=== PATIENT | male | born 2000 | race Two or more races ===

== ENCOUNTER 2019-02-13 04:54 | Emergency (ER) | payer OTHER ==
[~2019-02-13] VITALS: Ht 180.3 cm; Wt 65.8 kg
[2019-02-13] MEDS ORDERED: LIDOCAINE 2% VISCOUS 15 ML SOLUTION. MM ONE (05:30)
--- NOTE | 2019-02-13 05:38 | PHYS DOC ---
Adult General Chief Complaint Chief Complaint: FOREIGNBODY EAR HPI HPI Patient is a 18 year old healthy male, w/ no medical or surgical history, who presents with a sensation that a foreign body is in his ear. Pt is visibly anxious and is scared there is a "bug or a rat" in his ear. Pt reports onset around 10AM yesterday (02/12/19) that he felt like something was in his ear. He reports that swallowing caused him to feel "like air moving" through his nasal sinus and right ear. Pt states he was sick on tuesday w/ fever but did not go to the hospital and it improved, "going away" on tuesday. He states that he would pinch his nose and blow it to try and "get it out," and he kept doing this until he felt a pop. He is very scared and anxious that something is in his ear and states his ear isn't "Feeling right." He denies ear pain. He denies CP, PADGETT, SOB, n/v, diarrhea, constipation. He admits a recent history of fever but notes he never recorded a temperature. He denies taking any medications, having any past surgeries, or any medical conditions. (JOSUE BEARD MD) Review of Systems Review of Systems Constitutional:Admits to subjective fever this past Tuesday (02/09/19), he did not take his temperature. Reports being sick this past but improved on its own. Eyes: Denies change in visual acuity, redness, or eye pain HENT:states that he "feels air traveling from my nose to my right ear when I swallow." Respiratory: Admits cough and shortness of breath Cardiovascular: No additional information not addressed in HPI. GI: Denies abdominal pain, nausea, vomiting, bloody stools or diarrhea : Denies dysuria or hematuria Musculoskeletal: Denies back pain or joint pain Integument: Denies rash or skin lesions Neurologic: Denies headache, focal weakness or sensory changes Endocrine: Denies polyuria or polydipsia All other systems were reviewed and found to be within normal limits, except as documented in this note. (JOSUE BEARD MD) Current Medications Current Medications Current Medications Medications (Trade) Dose Ordered Sig/Janice Start Time Stop Time Status Last Admin Dose Admin Ketorolac Tromethamine (Toradol 15mg Vial) 15 mg 1X ONCE 02/13/19 06:00 02/13/19 06:01 DC Lidocaine HCl (Viscous Lidocaine) 15 ml 1X ONCE 02/13/19 05:30 02/13/19 05:31 DC Lorazepam (Ativan) 1 mg 1X ONCE 02/13/19 06:00 02/13/19 06:01 DC 02/13/19 06:00 1 MG Sodium Chloride 1,000 ml @ 1,000 mls/hr 1X ONCE 02/13/19 06:00 02/13/19 06:59 DC 02/13/19 05:24 1,000 MLS/HR (YARELIS MACDONALD DO) Allergies Allergies Allergies Coded Allergies Type Severity Reaction Last Updated Verified No Known Drug Allergies 02/13/19 No (YARELIS MACDONALD DO) Physical Exam Physical Exam Constitutional: Pt in acute distress, visibily anxious, but non-toxic appearance. HENT: Normocephalic, atraumatic, bilateral external ears normal, oropharynx moist, no oral exudates, nose turbinates inflamed and erythematous b/l. L external ear normal and TM w/ cone of light noted, difficult exam bubbles seen no definite tm perf but bubbles and discharge obscure view.. Right ear has dried serosangious fluid around the external ear canal and in the ear canal. TM is not visualized, with this fluid and bubbles covering where his TM should be. Eyes: PERRLA, EOMI, conjunctiva normal, no discharge. Neck: Normal range of motion, no tenderness, supple, no stridor. Cardiovascular:Heart rate tachycardic. Regular rhythm, no murmur Lungs & Thorax: Bilateral breath sounds clear to auscultation Abdomen: Bowel sounds normal, soft, no tenderness, no masses, no pulsatile masses. Skin: Warm, dry, no erythema, no rash. Back: No tenderness, no CVA tenderness. Extremities: No tenderness, no cyanosis, no clubbing, ROM intact, no edema. Neurologic: Alert and oriented X 3, normal motor function, normal sensory function, no focal deficits noted. psychl; pt is quite anxious (JOSUE BEARD MD) Current Patient Data Vital Signs Vital Signs Date Time Temp Pulse Resp B/P (MAP) Pulse Ox O2 Delivery O2 Flow Rate FiO2 02/13/19 06:30 118 22 122/70 (87) 98 Room Air 02/13/19 05:06 98.4 98.4 (MACDONALDYARELIS DO) Lab Values Laboratory Tests Test 02/13/19 05:22 02/13/19 05:50 02/13/19 06:30 White Blood Count 11.1 x10^3/uL (4.0-11.0) H Red Blood Count 4.87 x10^6/uL (4.30-5.70) Hemoglobin 14.8 g/dL (13.0-17.5) Hematocrit 43.1 % (39.0-53.0) Mean Corpuscular Volume 89 fL (79-100) Mean Corpuscular Hemoglobin 30 pg (25-35) Mean Corpuscular Hemoglobin Concent 34 g/dL (31-37) Red Cell Distribution Width 13.0 % (11.5-14.5) Platelet Count 194 x10^3/uL (140-400) Neutrophils (%) (Auto) 77 % (31-73) H Lymphocytes (%) (Auto) 15 % (24-48) L Monocytes (%) (Auto) 8 % (0-9) Eosinophils (%) (Auto) 0 % (0-3) Basophils (%) (Auto) 0 % (0-3) Neutrophils # (Auto) 8.5 x10^3uL (1.8-7.7) H Lymphocytes # (Auto) 1.7 x10^3/uL (1.0-4.8) Monocytes # (Auto) 0.9 x10^3/uL (0.0-1.1) Eosinophils # (Auto) 0.0 x10^3/uL (0.0-0.7) Basophils # (Auto) 0.0 x10^3/uL (0.0-0.2) Sodium Level 141 mmol/L (136-145) Potassium Level 3.4 mmol/L (3.5-5.1) L Chloride Level 101 mmol/L (98-107) Carbon Dioxide Level 25 mmol/L (21-32) Anion Gap 15 (6-14) H Blood Urea Nitrogen 13 mg/dL (8-26) Creatinine 0.9 mg/dL (0.7-1.3) Estimated GFR (Cockcroft-Gault) 107.6 BUN/Creatinine Ratio 14 (6-20) Glucose Level 113 mg/dL (70-99) H Calcium Level 9.2 mg/dL (8.5-10.1) Total Bilirubin 0.5 mg/dL (0.2-1.0) Aspartate Amino Transferase (AST) 22 U/L (15-37) Alanine Aminotransferase (ALT) 35 U/L (16-63) Alkaline Phosphatase 77 U/L (46-116) Total Protein 8.4 g/dL (6.4-8.2) H Albumin 4.1 g/dL (3.4-5.0) Albumin/Globulin Ratio 1.0 (1.0-1.7) Influenza Type A Antigen Negative (NEGATIVE) Influenza Type B Antigen Negative (NEGATIVE) Urine Opiates Screen Neg (NEG) Urine Methadone Screen Neg (NEG) Urine Barbiturates Neg (NEG) Urine Phencyclidine Screen Neg (NEG) Urine Amphetamine/Methamphetamine Neg (NEG) Urine Benzodiazepines Screen Neg (NEG) Urine Cocaine Screen Pos (NEG) Urine Cannabinoids Screen Pos (NEG) Urine Ethyl Alcohol Neg (NEG) Laboratory Tests 02/13/19 05:22 Laboratory Tests 02/13/19 05:22 (YARELIS MACDONALD DO) Lab Values Laboratory Tests Test 02/13/19 05:22 02/13/19 05:50 02/13/19 06:30 White Blood Count 11.1 x10^3/uL (4.0-11.0) H Red Blood Count 4.87 x10^6/uL (4.30-5.70) Hemoglobin 14.8 g/dL (13.0-17.5) Hematocrit 43.1 % (39.0-53.0) Mean Corpuscular Volume 89 fL (79-100) Mean Corpuscular Hemoglobin 30 pg (25-35) Mean Corpuscular Hemoglobin Concent 34 g/dL (31-37) Red Cell Distribution Width 13.0 % (11.5-14.5) Platelet Count 194 x10^3/uL (140-400) Neutrophils (%) (Auto) 77 % (31-73) H Lymphocytes (%) (Auto) 15 % (24-48) L Monocytes (%) (Auto) 8 % (0-9) Eosinophils (%) (Auto) 0 % (0-3) Basophils (%) (Auto) 0 % (0-3) Neutrophils # (Auto) 8.5 x10^3uL (1.8-7.7) H Lymphocytes # (Auto) 1.7 x10^3/uL (1.0-4.8) Monocytes # (Auto) 0.9 x10^3/uL (0.0-1.1) Eosinophils # (Auto) 0.0 x10^3/uL (0.0-0.7) Basophils # (Auto) 0.0 x10^3/uL (0.0-0.2) Sodium Level 141 mmol/L (136-145) Potassium Level 3.4 mmol/L (3.5-5.1) L Chloride Level 101 mmol/L (98-107) Carbon Dioxide Level 25 mmol/L (21-32) Anion Gap 15 (6-14) H Blood Urea Nitrogen 13 mg/dL (8-26) Creatinine 0.9 mg/dL (0.7-1.3) Estimated GFR (Cockcroft-Gault) 107.6 BUN/Creatinine Ratio 14 (6-20) Glucose Level 113 mg/dL (70-99) H Calcium Level 9.2 mg/dL (8.5-10.1) Total Bilirubin 0.5 mg/dL (0.2-1.0) Aspartate Amino Transferase (AST) 22 U/L (15-37) Alanine Aminotransferase (ALT) 35 U/L (16-63) Alkaline Phosphatase 77 U/L (46-116) Total Protein 8.4 g/dL (6.4-8.2) H Albumin 4.1 g/dL (3.4-5.0) Albumin/Globulin Ratio 1.0 (1.0-1.7) Influenza Type A Antigen Negative (NEGATIVE) Influenza Type B Antigen Negative (NEGATIVE) Group A Streptococcus Rapid Negative (NEGATIVE) Urine Opiates Screen Neg (NEG) Urine Methadone Screen Neg (NEG) Urine Barbiturates Neg (NEG) Urine Phencyclidine Screen Neg (NEG) Urine Amphetamine/Methamphetamine Neg (NEG) Urine Benzodiazepines Screen Neg (NEG) Urine Cocaine Screen Pos (NEG) Urine Cannabinoids Screen Pos (NEG) Urine Ethyl Alcohol Neg (NEG) Laboratory Tests 02/13/19 05:22 Laboratory Tests 02/13/19 05:22 (JOSUE BEARD MD) EKG EKG Sinus tachycardia 140 BPM RBB Pattern (JOSUE BEARD MD) Radiology/Procedures Radiology/Procedures [] (JOSUE BEARD MD) Course & Med Decision Making Course & Med Decision Making Pt is a 18 yo M w/ no medical history presents w/ Right ear drainage. He is visibly anxious and scared that "a rat" is in his ear. His EKG showed RBBB and sinus tach at 140 bpm. On inspection of his R ear, dried fluid is seen on the external ear canal and w/in it. TM was not visualized on inspection, ear canal was filled w/ fluid and bubbles. He states he was recently sick and reports cough this past weekend. Ddx Perforated right ear drum with anxiety from pain and possible drug use admits to marijuana Workup CXR IV Fluids CBC, CMP flu swab. rapid strep s/o to macdonald pending results. likely will need drops for ruptured tm. (JOSUE BEARD MD) Course & Med Decision Making Patient felt much better, his heart rate improved to 100 bpm, lab works failed to show any acute problem, will discharge him home. (YARELIS MACDONALD DO) Dragon Disclaimer Dragon Disclaimer This electronic medical record was generated, in whole or in part, using a voice recognition dictation system. (JOSUE BEARD MD) Departure Departure Impression: Primary Impression: Tympanic membrane perforation Additional Impression: Substance abuse Disposition: 01 HOME, SELF-CARE Condition: IMPROVED Scripts Ciprofloxacin Hcl/Dexameth (CIPRODEX OTIC SUSPENSION) 7.5 Ml Drops.susp 4 DROP RIGHT EAR BID for 7 Days, #7.5 ML Prov: JOSUE BEARD MD 02/13/19 Problem Qualifiers JOSUE BEARD MD Feb 13, 2019 05:38 YARELIS MACDONALD DO Feb 13, 2019 07:16
[2019-02-13] MEDS ORDERED: CIPR7.5D RIGHT EAR (05:55)
[2019-02-13] MEDS ORDERED: KETOROLAC 15 MG/ML VIAL. IV ONE (06:00)
[2019-02-13] MEDS ORDERED: IV NORMAL SALINE 1000ML BAG 1,000 ML IV ONE (06:00)
[2019-02-13 06:09] LABS: BASO % 0 % (0-3); EOS % 0 % (0-3); HEMATOCRIT 43.1 % (39.0-53.0); HEMOGLOBIN 14.8 g/dL (13.0-17.5); LYMPH # 1.7 x10^3/uL (1.0-4.8); LYMPH % 15 % (24-48); MEAN CORPUSCULAR HEMOGLOBIN 30 pg (25-35); MEAN CORPUSCULAR HGB CONC 34 g/dL (31-37); MEAN CORPUSCULAR VOLUME 89 fL (79-100); MONO # 0.9 x10^3/uL (0.0-1.1); MONO % 8 % (0-9); NEUT # 8.5 x10^3uL (1.8-7.7); NEUT % 77 % (31-73); PLATELET COUNT 194 x10^3/uL (140-400); RED BLOOD COUNT 4.87 x10^6/uL (4.30-5.70); WHITE BLOOD COUNT 11.1 x10^3/uL (4.0-11.0)
[2019-02-13 06:18] LABS: INFLUENZA A PATIENT NEGATIVE (NEGATIVE); INFLUENZA B PATIENT NEGATIVE (NEGATIVE)
[2019-02-13 06:57] LABS: CALCIUM 9.2 mg/dL (8.5-10.1); CREATININE 0.9 mg/dL (0.7-1.3); GFR 107.6; POTASSIUM 3.4 mmol/L (3.5-5.1)
[2019-02-13 07:04] LABS: ALBUMIN 4.1 g/dL (3.4-5.0); TOTAL BILIRUBIN 0.5 mg/dL (0.2-1.0); TOTAL PROTEIN 8.4 g/dL (6.4-8.2)
[2019-02-13 07:06] VITALS: BP 127/70
[2019-02-13 07:09] LABS: BARBITURATES NEG (NEG); BENZODIAZEPINES NEG (NEG); CANNABINOIDS POS (NEG); COCAINE POS (NEG); METHADONE NEG (NEG); OPIATES NEG (NEG); PHENCYCLIDINE NEG (NEG)
[2019-02-13 07:10] LABS: AMPHETAMINE/METHAMPHETAMINE NEG (NEG)
--- NOTE | 2019-02-13 08:06 | RAD ---
PROCEDURE: PORTABLE CHEST 1V CLINICAL INDICATION: fever COMPARISON: None FINDINGS: No pneumothorax identified. Cardiac and mediastinal contours unremarkable. No pulmonary consolidation or acute airspace disease. No acute osseous abnormalities identified. IMPRESSION: No pulmonary consolidation or acute airspace disease. Electronically signed by: Junior Newman DO (02/13/2019 8:02 AM) [facility]
--- NOTE | 2019-02-13 12:30 | EKG ---
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
== END 2019-02-13 07:25 | disposition home or self-care (01) ==
LOC: ER 04:54
DX: H72.91 Unspecified perforation of tympanic membrane, right ear (principal); F19.10 Other psychoactive substance abuse, uncomplicated; F41.9 Anxiety disorder, unspecified; I45.10 Unspecified right bundle-branch block
CPT/HCPCS: 36415; 71045; 80053; 80307; 85025; 87070; 87804; 87880; 93005; 96374; 99284; J2060; J7030

== ENCOUNTER 2019-09-12 18:50 | Emergency (ER) | payer OTHER ==
[~2019-09-12] VITALS: Ht 177.8 cm; Wt 61.2 kg
[~2019-09-12 18:50] MED LIST: CIPR7.5D RIGHT EAR
[2019-09-12 19:09] VITALS: BP 139/77
--- NOTE | 2019-09-12 19:17 | PHYS DOC ---
Past Medical History Past Medical History: No Pertinent History Past Surgical History: No Surgical History Alcohol Use: None Drug Use: Marijuana Adult General Chief Complaint Chief Complaint: MECHANICAL FALL [facility] HPI 18-year-old male presents to the emergency Department complaints of left ankle, left wrist, left shoulder pain. Patient states he fell from a fence apartment 2 days ago. He's had worsening pain and therefore presented to the ER for further evaluation. Patient has no past medical history, takes no medications on a daily basis. He has no primary care physician. Movements make his pain worse. He states he has tingling appreciated to his index and thumb. He is able to move all of his fingers as well as his hand. Patient is limited range of motion secondary to pain on his left shoulder. All other ROS negative unless documented in HPI Review of Systems Review of Systems See Above Current Medications Current Medications Current Medications Medications (Trade) Dose Ordered Sig/Janice Start Time Stop Time Status Last Admin Dose Admin Diphtheria/ Tetanus/Acell Pertussis (Boostrix) 0.5 ml ONCE ONCE 09/12/19 20:00 09/12/19 20:01 DC Allergies Allergies Allergies Coded Allergies Type Severity Reaction Last Updated Verified No Known Drug Allergies 02/13/19 No Physical Exam Physical Exam See Above Constitutional: Well developed, well nourished, no acute distress, non-toxic appearance. [] HENT: Normocephalic, atraumatic, bilateral external ears normal, oropharynx m oist, no oral exudates, nose normal. [] Eyes: PERRLA, EOMI, conjunctiva normal, no discharge. [] Neck: Normal range of motion, no tenderness, supple, no stridor. [] Cardiovascular:Heart rate regular rhythm, no murmur [] Lungs & Thorax: Bilateral breath sounds clear to auscultation [] Abdomen: Bowel sounds normal, soft, no tenderness, no masses, no pulsatile masses. [] Skin: laceration appreciated to right index finger, hemostatis Back: No tenderness, no CVA tenderness. [] Extremities: ROM limited to ankle and shoulder 2/2 pain, left wrist with tenderness on exam however no acute bruising [] Neurologic: Alert and oriented X 3, no focal deficits noted. [] Psychologic: Affect normal, judgement normal, mood normal. [] Current Patient Data Vital Signs Vital Signs Date Time Temp Pulse Resp B/P (MAP) Pulse Ox O2 Delivery O2 Flow Rate FiO2 09/12/19 19:09 98.3 98 18 139/77 (97) 99 Room Air 98.3 EKG EKG [] Radiology/Procedures Radiology/Procedures [facility] [address] [place] [address] IMAGING REPORT Signed PATIENT: JG ALEXANDERACCOUNT: [id number] : 2000 LOCATION: ER AGE: 18 SEX: M EXAM STATUS: REG ER ORD. PHYSICIAN: CATHERINE LOZADA MD REASON: fall, pain to anterior shoulder/clavicle PROCEDURE: WRIST 3V LEFT Left wrist x-rays 3 views HISTORY: Fall, left wrist pain. FINDINGS: No definitive fracture. No dislocation. There is mild cortical irregularity at the radial styloid and volar radial metaphyseal cortex on the oblique and lateral x-rays without a distinct lucent fracture cleft, if the patient has point tenderness at this region an acute fracture would not be excluded. IMPRESSION: Mild cortical regularity of the radius as described above. Left shoulder frontal and scapular x-rays 3 views HISTORY: Shoulder pain after a fall. FINDINGS: No fracture, dislocation or arthritic change. The soft tissues are unremarkable. IMPRESSION: Normal exam. Left ankle x-rays 3 views HISTORY: Fall, left ankle pain. FINDINGS: Bone island of the talus. No fracture or dislocation of the ankle mortise. On the lateral film there are linear irregular calcifications overlying the dorsal cortex of the anterior talus and navicular without a discrete donor site this could be the sequela of an old injury with periosteal calcification, this is not the typical morphology of an acute periosteal cortical avulsive injury which is considered much less likely. IMPRESSION: No acute osseous injury evident. See discussion above. Electronically signed by: Jose Glez MD (09/12/2019 8:05 PM) [facility] [] [address] [place] [address] IMAGING REPORT Signed PATIENT: JG ALEXANDERACCOUNT: [id number] : 2000 LOCATION: ER AGE: 18 SEX: M EXAM STATUS: REG ER ORD. PHYSICIAN: CATHERINE LOZADA MD REASON: fall, pain to anterior shoulder/clavicle PROCEDURE: SHOULDER 2+V LEFT Left wrist x-rays 3 views HISTORY: Fall, left wrist pain. FINDINGS: No definitive fracture. No dislocation. There is mild cortical irregularity at the radial styloid and volar radial metaphyseal cortex on the oblique and lateral x-rays without a distinct lucent fracture cleft, if the patient has point tenderness at this region an acute fracture would not be excluded. IMPRESSION: Mild cortical regularity of the radius as described above. Left shoulder frontal and scapular x-rays 3 views HISTORY: Shoulder pain after a fall. FINDINGS: No fracture, dislocation or arthritic change. The soft tissues are unremarkable. IMPRESSION: Normal exam. Left ankle x-rays 3 views HISTORY: Fall, left ankle pain. FINDINGS: Bone island of the talus. No fracture or dislocation of the ankle mortise. On the lateral film there are linear irregular calcifications overlying the dorsal cortex of the anterior talus and navicular without a discrete donor site this could be the sequela of an old injury with periosteal calcification, this is not the typical morphology of an acute periosteal cortical avulsive injury which is considered much less likely. IMPRESSION: No acute osseous injury evident. See discussion above. Electronically signed by: Jose Glez MD (09/12/2019 8:05 PM) [facility] DICTATED and SIGNED BY: JOSE GLEZ MD DATE: 09/12/192004 [facility] [address] [place] [address] IMAGING REPORT Signed PATIENT: JG ALEXANDERACCOUNT: [id number] : 2000 LOCATION: ER AGE: 18 SEX: M EXAM STATUS: REG ER ORD. PHYSICIAN: CATHERINE LOZADA MD REASON: fall, pain to anterior shoulder/clavicle PROCEDURE: ANKLE LEFT 3V Left wrist x-rays 3 views HISTORY: Fall, left wrist pain. FINDINGS: No definitive fracture. No dislocation. There is mild cortical irregularity at the radial styloid and volar radial metaphyseal cortex on the oblique and lateral x-rays without a distinct lucent fracture cleft, if the patient has point tenderness at this region an acute fracture would not be excluded. IMPRESSION: Mild cortical regularity of the radius as described above. Left shoulder frontal and scapular x-rays 3 views HISTORY: Shoulder pain after a fall. FINDINGS: No fracture, dislocation or arthritic change. The soft tissues are unremarkable. IMPRESSION: Normal exam. Left ankle x-rays 3 views HISTORY: Fall, left ankle pain. FINDINGS: Bone island of the talus. No fracture or dislocation of the ankle mortise. On the lateral film there are linear irregular calcifications overlying the dorsal cortex of the anterior talus and navicular without a discrete donor site this could be the sequela of an old injury with periosteal calcification, this is not the typical morphology of an acute periosteal cortical avulsive injury which is considered much less likely. IMPRESSION: No acute osseous injury evident. See discussion above. Electronically signed by: Jose Glez MD (09/12/2019 8:05 PM) [facility] DICTATED and SIGNED BY: JOSE GLEZ MD DATE: 09/12/192004 Course & Med Decision Making Course & Med Decision Making Pertinent Labs and Imaging studies reviewed. (See chart for details) []18-year-old male presents to the emergency Department complaints of left ankle, left wrist, left shoulder pain. Patient states he fell from a fence apartment 2 days ago. He's had worsening pain and therefore presented to the ER for further evaluation. Patient has no past medical history, takes no medications on a daily basis. He has no primary care physician. Movements make his pain worse. He states he has tingling appreciated to his index and thumb. He is able to move all of his fingers as well as his hand. Patient is limited range of motion secondary to pain on his left shoulder. Imaging without acute osseous injury. Reviewed ankle, wrist, shoulder. Tetanus shot discussed however patient declines. Given normal x-ray findings will plan for discharge Recommend follow up as needed with primary care physician Nimisha as needed for pain Dragon Disclaimer Dragon Disclaimer This electronic medical record was generated, in whole or in part, using a voice recognition dictation system. Departure Departure Impression: Primary Impression: Wrist pain, left Additional Impressions: Left ankle pain Left shoulder pain Disposition: HOME, SELF-CARE Condition: STABLE Referrals: NO PCP (PCP) Patient Instructions: Ankle Pain, Shoulder Pain, [id number], Wrist Pain, [id number] Additional Instructions: Recommend follow up with PCP 3 - 5 days Return to the ER with worsening symptoms, intractable pain, fever, altered mental status Tylenol/Motrin as needed for pain Problem Qualifiers Additional Impressions: Left ankle pain Chronicity: acute Qualified Codes: M25.572 - Pain in left ankle and joints of left foot Left shoulder pain Chronicity: acute Qualified Codes: M25.512 - Pain in left shoulder CATHERINE LOZADA MD Sep 12, 2019 19:16
[2019-09-12] MEDS ORDERED: DIPHTH,PERTUSS(ACELL),TET TOX 0.5 ML DISP.SYRIN. VAX IM ONE (20:00)
--- NOTE | 2019-09-12 20:07 | RAD ---
Left wrist x-rays 3 views HISTORY: Fall, left wrist pain. FINDINGS: No definitive fracture. No dislocation. There is mild cortical irregularity at the radial styloid and volar radial metaphyseal cortex on the oblique and lateral x-rays without a distinct lucent fracture cleft, if the patient has point tenderness at this region an acute fracture would not be excluded. IMPRESSION: Mild cortical regularity of the radius as described above. Left shoulder frontal and scapular x-rays 3 views HISTORY: Shoulder pain after a fall. FINDINGS: No fracture, dislocation or arthritic change. The soft tissues are unremarkable. IMPRESSION: Normal exam. Left ankle x-rays 3 views HISTORY: Fall, left ankle pain. FINDINGS: Bone island of the talus. No fracture or dislocation of the ankle mortise. On the lateral film there are linear irregular calcifications overlying the dorsal cortex of the anterior talus and navicular without a discrete donor site this could be the sequela of an old injury with periosteal calcification, this is not the typical morphology of an acute periosteal cortical avulsive injury which is considered much less likely. IMPRESSION: No acute osseous injury evident. See discussion above. Electronically signed by: Ambrose Glez MD (09/12/2019 8:05 PM) [facility]
== END 2019-09-12 20:51 | disposition home or self-care (01) ==
LOC: ER 18:50
DX: S61.210A Laceration without foreign body of right index finger without damage to nail, initial encounter (principal); M25.532 Pain in left wrist; M25.572 Pain in left ankle and joints of left foot; M25.512 Pain in left shoulder; W17.89XA Other fall from one level to another, initial encounter; Y93.89 Activity, other specified; Y92.89 Other specified places as the place of occurrence of the external cause; Y99.8 Other external cause status
CPT/HCPCS: 29125; 73030; 73110; 73610; 99284

== ENCOUNTER 2019-12-02 10:52 | Emergency (ER) | payer SELFPAY ==
[~2019-12-02] VITALS: Ht 177.8 cm; Wt 61.2 kg
[2019-12-02] MEDS ORDERED: MORPHINE SULFATE 10 MG/ML VIAL. IV STA (11:48)
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
[2019-12-02] MEDS ORDERED: IV NORMAL SALINE 1000ML BAG 1,000 ML IV ONE (12:00)
[2019-12-02] MEDS ORDERED: ONDANSETRON PF 4 MG/2 ML VIAL. IV ONE (12:00)
[2019-12-02 12:09] LABS: BASO % 0 % (0-3); EOS % 0 % (0-3); HEMATOCRIT 45.7 % (39.0-53.0); HEMOGLOBIN 15.6 g/dL (13.0-17.5); LYMPH # 1.3 x10^3/uL (1.0-4.8); LYMPH % 12 % (24-48); MEAN CORPUSCULAR HEMOGLOBIN 31 pg (25-35); MEAN CORPUSCULAR HGB CONC 34 g/dL (31-37); MEAN CORPUSCULAR VOLUME 91 fL (79-100); MONO # 0.9 x10^3/uL (0.0-1.1); MONO % 8 % (0-9); NEUT # 8.9 x10^3/uL (1.8-7.7); NEUT % 80 % (31-73); PLATELET COUNT 220 x10^3/uL (140-400); RED BLOOD COUNT 5.02 x10^6/uL (4.30-5.70); RED CELL DISTRIBUTION WIDTH 13.4 % (11.5-14.5); WHITE BLOOD COUNT 11.1 x10^3/uL (4.0-11.0)
[2019-12-02 12:15] LABS: CALCIUM 9.3 mg/dL (8.5-10.1); GFR 94.3; POTASSIUM 3.4 mmol/L (3.5-5.1)
[2019-12-02] MEDS ORDERED: IOHEXOL 300 MG/ML 100ML VIAL. IV ONE (12:15)
[2019-12-02 12:21] LABS: BILIRUBIN,URINE SMALL (NEG); CLARITY,URINE CLEAR; COLOR,URINE AMBER; NITRITE,URINE NEGATIVE (NEG); PH,URINE 6.5; PROTEIN,URINE NEGATIVE (NEG-TRACE)
[2019-12-02 12:21] LABS: PROTHROMBIN TIME PATIENT 13.3 SEC (11.7-14.0)
[2019-12-02 12:22] LABS: ALBUMIN 4.2 g/dL (3.4-5.0); ALBUMIN/GLOBULIN RATIO 1.3 (1.0-1.7); TOTAL BILIRUBIN 1.3 mg/dL (0.2-1.0); TOTAL PROTEIN 7.5 g/dL (6.4-8.2)
[2019-12-02 12:29] LABS: BARBITURATES NEG (NEG); BENZODIAZEPINES NEG (NEG); CANNABINOIDS POS (NEG); COCAINE NEG (NEG); METHADONE NEG (NEG); OPIATES NEG (NEG); PHENCYCLIDINE NEG (NEG)
[2019-12-02 12:30] LABS: AMPHETAMINE/METHAMPHETAMINE NEG (NEG)
--- NOTE | 2019-12-02 12:35 | RAD ---
EXAM: 1. Left tibia/fibula 2 views. 2. Left ankle 3 views. 3. Left foot 3 views. HISTORY: Fall, trauma, pain. COMPARISON: None. FINDINGS: No fractures are identified throughout. The joint spaces and alignment of the knee, ankle and foot are maintained. Small ossicles along the dorsum of the talar neck and navicular do not appear to represent avulsion fragments and may represent capsular calcification or ossification. A small calcific density within the heel pad laterally measures 3 x 1 mm. There is a bone island within the talar dome. IMPRESSION: 1. No fracture. 2. Correlate to exclude a 3 x 1 mm foreign body within the lateral aspect of the heel pad. Electronically signed by: Bashir Sanchez MD (12/02/2019 12:32 PM) [facility]
[2019-12-02 12:40] LABS: BACTERIA,URINE 0 /HPF (0-FEW)
--- NOTE | 2019-12-02 13:17 | RAD ---
EXAM: Head CT without contrast; cervical spine CT without contrast; thoracic spine CT without contrast; lumbar spine CT without contrast; chest, abdomen and pelvis CT with intervenous contrast. HISTORY: Fall from roof. TECHNIQUE: Computed tomographic images of the head, cervical, thoracic and lumbar spine were obtained without contrast. Post contrast images of the chest, abdomen and pelvis were also obtained. *One or more of the following individualized dose reduction techniques were utilized for this examination: 1. Automated exposure control. 2. Adjustment of the mA and/or kV according to patient size. 3. Use of iterative reconstruction technique. COMPARISON: None. FINDINGS: Head: There is no hemorrhage. There is a focus of hyperdensity within the inferior medial right frontal lobe due to bone artifact. There is no mass effect or midline shift. There is no hydrocephalus. The schuster-white matter differential pattern is intact. There is posterior right ethmoid sinus because of thickening. There is no suspicious calvarial lesion or calvarial fracture. The mastoid air cells are clear. There is an asymmetric large left jugular foramen, a normal variant. Cervical spine: There is no listhesis. The vertebral bodies are normal in height and the disc spaces are preserved. There is no suspicious osseous lesion. There is no fracture. There is no significant foraminal or central canal stenosis. The airways midline and mildly patent. Chest and thoracic spine: There are tiny foci of subpleural gas at the left lung apex, suggesting a tiny pneumothorax or associated with a tiny amount of venous gas due to recent catheterization. No significant pneumothorax is seen. There are mild anterior superior endplate compression deformities of T11, T12 and L1. No retropulsion of the cortex is seen. There is endplate remodeling at multiple levels. There are few endplate Schmorl's nodes. There is no significant thoracic foraminal or central canal stenosis. There is no infiltrate. There is no pleural effusion. There is no suspicious pulmonary nodule. There is no evidence of traumatic mediastinal injury. There is a bovine aortic arch branching pattern, a normal variant. There is no lymphadenopathy. There are few tiny benign bone islands. Abdomen pelvis and lumbar spine. No hepatic lesion is seen. The gallbladder, pancreas, spleen, adrenal glands and kidneys are unremarkable. No abnormally thickened or dilated loop of bowel is seen. There is no lymphadenopathy. The aorta is normal in caliber. The bladder is unremarkable. There are few tiny benign bone islands. There is no significant foraminal or central canal stenosis. IMPRESSION: 1. No acute intracranial finding or evidence of acute cervical spine trauma. 2. Mild anterior superior endplate compression fractures at T11, T12 and L1, of uncertain chronicity. Correlate for pain in this location. No retropulsion of the cortex or significant stenosis is seen. 3. Tiny foci of subpleural gas within the left lung apex. This may be due to a clinically insignificant pneumothorax or a tiny amount of venous gas from recent peripheral catheterization. No significant pneumothorax or acute intrathoracic finding is seen. Electronically signed by: Dari Tee MD (12/02/2019 1:13 PM) [facility]
[2019-12-02 15:28] VITALS: BP 130/84
[2019-12-02] MEDS ORDERED: KETOROLAC TROMETHAMINE 10 MG TABLET PO STA (15:33)
== END 2019-12-02 15:40 | disposition home or self-care (01) ==
LOC: ER 10:52
DX: S22.080A Wedge compression fracture of T11-T12 vertebra, initial encounter for closed fracture (principal); S32.010A Wedge compression fracture of first lumbar vertebra, initial encounter for closed fracture; R10.9 Unspecified abdominal pain; M25.572 Pain in left ankle and joints of left foot; R31.9 Hematuria, unspecified; F12.90 Cannabis use, unspecified, uncomplicated; Z79.899 Other long term (current) drug therapy; W19.XXXA Unspecified fall, initial encounter; Y93.89 Activity, other specified; Y92.89 Other specified places as the place of occurrence of the external cause; Y99.8 Other external cause status
CPT/HCPCS: 36415; 70450; 71260; 72125; 73590; 73610; 73630; 74177; 80053; 80307; 81001; 85025; 85610; 85730; 96374; 96375; 99285; G0480; J2270; J2405; J7030; Q9967